=== PATIENT | male | born 1955 | race Caucasian/White ===

== ENCOUNTER → 2017-09-23 | Outpatient (CLI) | payer OTHER ==
[~2017-09-23] MED LIST: ASPI81EC PO; COUMADIN; DIPH50 PO; HYDACE5 PO; METPRE4DP PO; NAPR550 PO; OXYACE5T PO; PROC10 PO; PROM25 PO; RANI150 PO; RXONDA4ODT MM; TRAM50 PO
[2017-09-23 12:13] LABS: BASOPHILS ABSOLUTE AUTO 0.05 K/mm3 (0.00-0.23); BASOPHILS PERCENT AUTO 1 % (0-2); EOSINOPHILS ABSOLUTE AUTO 0.09 K/mm3 (0.00-0.68); EOSINOPHILS PERCENT AUTO 1 % (0-6); Hematocrit 39.6 % (37.0-53.0); Hemoglobin 13.7 g/dL (13.5-17.5); IMMATURE GRAN ABSOLUTE AUTO 0.02 K/mm3 (0.00-0.10); IMMATURE GRAN PERCENT AUTO 0 % (0-1); LYMPHOCYTES ABSOLUTE AUTO 1.46 K/mm3 (0.84-5.20); LYMPHOCYTES PERCENT AUTO 23 % (21-46); MONOCYTES ABSOLUTE AUTO 0.72 K/mm3 (0.16-1.47); MONOCYTES PERCENT AUTO 11 % (4-13); Mean Corpuscular HGB 32.5 pg (26.0-34.0); Mean Corpuscular HGB Conc 34.6 g/dL (31.5-36.5); Mean Corpuscular Volume 94 fL (80-100); Mean Platelet Volume 10.5 fL (9.1-12.4); NEUTROPHILS ABSOLUTE AUTO 4.03 K/mm3 (1.96-9.15); NEUTROPHILS PERCENT AUTO 63 % (41-73); Platelet Count 151 K/mm3 (150-400); RDW Standard Deviation 44.5 fL (35.1-46.3); Red Blood Cell Count 4.21 M/mm3 (4.30-5.90); White Blood Cell Count 6.37 K/mm3 (4.00-11.30)
[2017-09-23 12:32] LABS: Anion Gap 7 mmol/L (6-16); Blood Urea Nitrogen 12 mg/dL (8-24); Bun/Creatinine Ratio 14.1 (12.0-20.0); CO2, Blood 28 mmol/L (21-32); Calcium, Blood 9.3 mg/dL (8.5-10.1); Chloride, Blood 100 mmol/L (98-108); Creatinine, Blood 0.85 mg/dL (0.60-1.20); Glomerular Filtration Rate >60 (60-); Glucose, Blood 136 mg/dL (70-99); Sodium, Blood 135 mmol/L (136-145); Thyroid Stimulating Hormone 1.156 uIU/mL (0.360-4.800)
[2017-09-23 12:34] LABS: Troponin I <0.017 ng/mL (0.000-0.040)
== END | disposition home or self-care (01) ==
LOC: LAB SHORT 12:10 → LAB EV 12:10
PROVIDERS: Physician Assistant Surgical
DX: R07.9 Chest pain, unspecified (principal); R53.83 Other fatigue
CPT/HCPCS: 80048; 84443; 84484; 85025

== ENCOUNTER 2020-03-03 17:00 | Emergency (ER) | payer OTHER ==
[~2020-03-03] VITALS: Ht 167.6 cm; Wt 90.7 kg
[2020-03-03] MEDS ORDERED: KEFLEX500 MG PO (19:43)
== END 2020-03-03 19:58 | disposition home or self-care (01) ==
LOC: ER 17:00
DX: H02.845 Edema of left lower eyelid (principal); Z23 Encounter for immunization
CPT/HCPCS: 70480; 90471; 90714; 99283-25; A9270; A9270-GY

== ENCOUNTER 2021-06-20 10:04 | Inpatient (IN) | payer OTHER ==
[~2021-06-20] VITALS: Ht 167.6 cm; Wt 95.6 kg
[~2021-06-20 10:04] MED LIST changes: +KEFLEX500 MG PO
[2021-06-20 11:07] LABS: BASOPHILS ABSOLUTE AUTO 0.03 K/mm3 (0.00-0.23); BASOPHILS PERCENT AUTO 0 % (0-2); EOSINOPHILS ABSOLUTE AUTO 0.11 K/mm3 (0.00-0.68); EOSINOPHILS PERCENT AUTO 1 % (0-6); IMMATURE GRAN ABSOLUTE AUTO 0.11 K/mm3 (0.00-0.10); IMMATURE GRAN PERCENT AUTO 1 % (0-1); LYMPHOCYTES ABSOLUTE AUTO 0.69 K/mm3 (0.84-5.20); LYMPHOCYTES PERCENT AUTO 8 % (21-46); MONOCYTES ABSOLUTE AUTO 0.71 K/mm3 (0.16-1.47); MONOCYTES PERCENT AUTO 8 % (4-13); Mean Corpuscular HGB Conc 33.3 g/dL (31.5-36.5); Mean Corpuscular Volume 93 fL (80-100); Mean Platelet Volume 10.5 fL (9.1-12.4); NEUTROPHILS ABSOLUTE AUTO 6.82 K/mm3 (1.96-9.15); NEUTROPHILS PERCENT AUTO 81 % (41-73); Platelet Count 131 K/mm3 (150-400); RDW Coefficient Variation 12.7 % (11.7-14.2); RDW Standard Deviation 43.3 fL (35.1-46.3); Red Blood Cell Count 3.55 M/mm3 (4.30-5.90); White Blood Cell Count 8.47 K/mm3 (4.00-11.30)
[2021-06-20 11:24] LABS: Alanine Aminotransfer (ALT/SGP 30 U/L (12-78); Albumin, Blood 2.2 g/dL (3.4-5.0); Albumin/Globulin Ratio 0.4 (0.8-1.8); Alk Phos 59 U/L (50-136); Anion Gap 4 mmol/L (6-16); Aspartate Aminotrans (AST/SGOT 48 U/L (12-37); Bilirubin, Total 0.6 mg/dL (0.1-1.0); Blood Urea Nitrogen 11 mg/dL (8-24); Bun/Creatinine Ratio 14.5 (12.0-20.0); CO2, Blood 29 mmol/L (21-32); Calcium, Blood 8.2 mg/dL (8.5-10.1); Chloride, Blood 101 mmol/L (98-108); Creatinine, Blood 0.76 mg/dL (0.60-1.20); Glomerular Filtration Rate >60 (60-); Glucose, Blood 125 mg/dL (70-99); Sodium, Blood 134 mmol/L (136-145); Total Protein, Blood 7.2 g/dL (6.4-8.2)
[2021-06-20 13:46] LABS: Anti-Xa UFH, PHA Monitoring <0.10 IU/mL; International Normalized Ratio 1.09; Prothrombin Time Results 11.4 Sec (9.7-11.5)
--- NOTE | 2021-06-20 17:24 | NUR ---
PT ARRIVED TO ICU AT 1640 06/20/21 ON ROOM AIR, WITH HEPARIN DRIP RUNNING AT 18 UNITS/KG/HR WITH A PUMP RATE OF 27.4. TEMP LIN PLACED AND URINE SAMPLE SENT. TEMPURATURE 100.7 F, WT 96.6 KG, HR 110, BP 156/82, O2 SAT 88% (PLACED ON 2 LITERS NASAL CANNULA) RR 24. HT 5'6''
--- NOTE | 2021-06-20 17:41 | NUR ---
PT LEFT TO HEART CENTER WITH CATH STAFF AT 1740 06/20/21
[2021-06-20 18:33] LABS: U Amphetamine Screen DETECTED; U Barbituate Screen Not Detected; U Benzodiazapine Screen Not Detected; U Buprenorphine Screen Not Detected; U Cannabinoids Screen DETECTED; U Cocaine Screen Not Detected; U Methadone Screen Not Detected; U Methamphetamine Screen DETECTED; U Opiates Screen DETECTED; U Oxycodone Screen Not Detected; U Phencyclidine Screen Not Detected; U Propoxyphene Screen Not Detected
[2021-06-20 20:30] LABS: Source, Urine Foley catheter
[2021-06-20 20:33] LABS: Appearance, Urine Clear (Clear); Bilirubin, Urine Neg (Neg); Blood, Urine 1+ (Neg); Color, Urine Yellow (P-Yellow); Glucose Qualitative, Urine Neg (Neg); Ketones, Urine Neg (Neg); Leukocyte Esterase, Urine Neg (Neg); Nitrite, Urine Neg (Neg); Protein, Urine 2+ (Neg); Urobilinogen, Urine 2+ (Normal)
[2021-06-20 20:58] LABS: Amorphous Light (0-Heavy); Bacteria Rare /hpf; Mucus Light (0-Heavy); Red Blood Cells, Urine 0-2 /hpf (0-2); Squamous Epithelial Cells Rare /hpf (Few); White Blood Cells, Urine Rare /hpf (0-5)
--- NOTE | 2021-06-20 23:00 | NUR ---
ASSUME CARE. BACK FROM CATHLAB. PATIENT IS ASLEEP, ON BIPAP. APPEARS TO BE COMFORTABLE. VITALS WNL, SATS IN THE 90'S. RIGHT FEMORAL SHEATH CATHETER WRAPPED IN GAUZE AND TEGADERM, NO SIGNS OF BLEEDING OR HEMATOMA. DR. CLAY IN ROOM. ORDER FOR HEPARIN DRIP STARTED VIA FEMORAL SHEATH PORT WITH NS TKO Y-SITED IN. ORDER FOR CATHFLOW PLACED. PATIENT ABLE TO OPEN EYES AND ANSER BUT FALLS RIGHT BACK TO SLEEP. RLE PULSE TO TIBIAL WITH DOPPLER. NO PEDAL PULSES. RIGHT FOOT COOL TO TOUCH, AND RED. LEFT GROIN DRESSING INTACT, NO SIGN OF BLEEDING OR HEMATOMA. LUNG SOUNDS COARSE CRACKLES IN BASES TO MID LOBES. CURRENTLY SINUS ON MONITOR.
[2021-06-20 23:29] LABS: Hemoglobin 9.5 g/dL (13.5-17.5); Mean Platelet Volume 10.8 fL (9.1-12.4); Platelet Count 133 K/mm3 (150-400)
--- NOTE | 2021-06-21 | NUR ---
PRECEDEX STARTED, PATIENT WOKE UP FOR SHORT PERIOD OF TIME, LIFTING HEAD. BUT WAS ABLE TO FOLLOW INSTRUCTIONS WELL. DID NOT STAY AWAKE FOR LONG. SITE IS CLEAR OF DRAINAGE. INFUSING CATHFLOW AND HEPARIN PER ORDERS. RIGHT FOOT IS RED MOTTLED, SLIGHTLY WARMER.
[2021-06-21 03:53] LABS: Hematocrit 27.6 % (37.0-53.0); Hemoglobin 9.3 g/dL (13.5-17.5); Mean Corpuscular HGB 31.6 pg (26.0-34.0); Mean Corpuscular HGB Conc 33.7 g/dL (31.5-36.5); Mean Corpuscular Volume 94 fL (80-100); Mean Platelet Volume 10.8 fL (9.1-12.4); Platelet Count 127 K/mm3 (150-400); RDW Standard Deviation 44.5 fL (35.1-46.3); Red Blood Cell Count 2.94 M/mm3 (4.30-5.90); White Blood Cell Count 9.42 K/mm3 (4.00-11.30)
--- NOTE | 2021-06-21 06:20 | NUR ---
SHIFT SUMMARY: RETURNED FROM CATHLAB AROUND 2229. CURRENTLY INFUSING HEPAIN WITH Y SITED NS AT TKO INTO RIGHT FEMERAL SHEATH PORTS. CATHFLOW INFUSING AT 1MG INTO OTHER PORT. SITE STARTED TO HAVE MILD DRAINAGE AROUND 0. ABOUT A TEASPOON IN MEASUREMENT. POSSIBLY R/T COUGHING EVENTS CAUSING HIM TO LIFT HEAD AND LEG SLIGHTLY. RIGHT FOOT COOLER THAN ROOM TEMP. NO PULSES NOTED. NOTED SOME FLEXTION AND EXTENTION OF THAT FOOT. DOES HAVE POPLITEAL PULSES PER DOPPLER. AWAKED FOR SHORT PERIOD AROUND 399 ASKING FOR WATER. MOISTENED ORAL CAVITY AND PLACED BACK ON BIPAP. BIPAP SETTINGS AT IPAP 18, EPAP 10, RATE 10. FIO2 35%. INCREASE IN PRODUCTION, CLEARED THICK YELLOW SPUTUM FROM MOUTH. COUGH VERY MOIST. LS COARSE MID TO LOWER LOBES. PRECEDEX STARTED AND CURRENTLY RUNNING AT 0.3MG. WILL REPORT OFF TO DAYSHIFT.
[2021-06-21 06:42] LABS: Anion Gap 6 mmol/L (6-16); Blood Urea Nitrogen 11 mg/dL (8-24); Bun/Creatinine Ratio 11.7 (12.0-20.0); CHOL/HDL RATIO 3.5; CO2, Blood 27 mmol/L (21-32); Calcium, Blood 8.1 mg/dL (8.5-10.1); Chloride, Blood 103 mmol/L (98-108); Cholesterol 121 mg/dL (50-200); Creatinine, Blood 0.94 mg/dL (0.60-1.20); Glomerular Filtration Rate >60 (60-); Glucose, Blood 107 mg/dL (70-99); HDL Cholesterol 35 mg/dL (>39); LDL/HDL RATIO 1.8; Low Density Lipoprotein Chol 62 mg/dL (0-110); Potassium, Blood 4.4 mmol/L (3.5-5.5); Sodium, Blood 136 mmol/L (136-145); Triglycerides 118 mg/dL (30-160); Very Low Density Lipoprot Chol 23 mg/dL (6-32)
--- NOTE | 2021-06-21 07:15 | NUR ---
PT RESTING ON BIPAP WITH SETTINGS OF 18/10 45% FiO2. PT HAS HEPARIN RUNNING AT SET RATE OF 10MLS/HR ORDERED INTO SHEATH. PT HAS TPA RUNNING AT TPA RUNNING AT 10ML/HR INTO CATHETER AND A PRECEDEX DRIP RUNNING AT .3. PT'S VITALS CURRENTLY STABLE, AFEBRILE, MAP'S ABOVE 65, HR IN THE 80'S.
--- NOTE | 2021-06-21 08:59 | NUR ---
PT PLACED ON HIGH FLOW DT REFUSING BIPAP AND OXYGEN SATTING 86% WITH 6L NC. 50L/MIN @ 60% FiO2
--- NOTE | 2021-06-21 10:11 | NUR ---
PT FRIEND CATHRYN MORRISSEY UPDATED ON PT STATUS WITH PT'S CONSENT.
--- NOTE | 2021-06-21 14:11 | NUR ---
PT LEFT FOR METAL MINE INSPECTOR AT 1101. PT RETURNED FROM METAL MINE INSPECTOR AT 1402. HEPARIN DRIP RESTARTED AT 10ML/HR CONTINUOUS PER ORDER. PRECEDEX RUNNING AT .9MCG/KG/HR. PT ON HIGHFLOW NASAL CANNULA 45L/MIN AT 45% FiO2. BLOOD PRESSURES SOFT AT 85/56 (65). OTHERWISE STABLE AND PT RESTING COMFORTABLY.
--- NOTE | 2021-06-21 14:21 | NUR ---
HEPARIN DRIP UPDATED TO WEIGHT BASED
--- NOTE | 2021-06-21 17:00 | NUR ---
PT RESTING ON HFCL 45L/45%, .7 OF PRECEDEX AND HEPARIN RUNNING 18 UNITS/KG/HR WITH A PUMP RATE OF 27.4. KNEE IMOBILIZER IN PLACE, WARM BLANKET ON RT FOOT. COVID PCR AND SPUTUM CULTURE SENT. NEURO- PT FOLLOWS COMMANDS IN ALL EXTREMETIES, WEAKLY MOVES RT FOOT. STRABISMUS OF RT EYE. A/O X4 BUT SPEECH IS GARBLED/SLURRED AT BASELINE. CARDIAC- PT HR CURRENTLY IN THE 60'S WITH PRECEDEX DRIP RUNNING, WAS 110'S ON ADMISSION. NSR ON TELEMETRY. STRONG RADIAL PULSES, DOPPLER RT DORSALIS PEDAL PULSE. COLOR OF RT FOOT HAS IMPROVED TO A LIGHT MAROON COLOR AND IS WARMER THAN YESTERDAY. LEFT BKA STUMP IS COOL AND DISCOLORED. PT HAD A BROWN CALLOUSED APPEARANCE ON EXRTREMETY FROM ADMIT. NO HEMATOMA AT ACCESS SITE ON GROIN. RESPIRATORY- PT IS COARSE IN UPPER LOBES AND DIMINISHED IN THE BASES. THICK, DAILEY SECTRETION NT SUCTIONED FROM PT. POSITIVE FOR COVID 06/21/21 GI/- REGULAR DIET ORDERED. PT ONLY VOIDED 400MLS OF URINE THIS SHIFT. PROVIDER AWARE. PT IS IMPULSIVE AT TIMES.
[2021-06-21 17:09] LABS: Influenza A, PCR NEGATIVE (NEGATIVE); Influenza B, PCR NEGATIVE (NEGATIVE); Resp Syncytial Virus, PCR NEGATIVE (NEGATIVE)
[2021-06-21 17:10] LABS: SARS-Cov-2 (COVID-19) PCR, MMC POSITIVE (NEGATIVE)
[2021-06-21 17:26] LABS: Hematocrit 27.7 % (37.0-53.0)
--- NOTE | 2021-06-21 20:00 | NUR ---
ASSUMED CARE OF PT AT 1915. REPORT RECEIVED. PT PRESENTS IN BED. HF OXYGEN IN USE. PT HAS A MOIST COUGH THAT HE SWALLOWS PRODUCT. RIGHT AND LEFT GROIN ACCESSES WITHOUT HEMATOMA OR OOZING. DOES HAVE PALPABLE PEDAL PULSE RIGHT. LEFT STUMP SLIGHT COOL TO TOUCH. PT AWAKENS AND ACKNOWLEDGES THIS RN. PT DOES HAVE PRECEDEX AT 0.6/MCG'S. WILL TITRATE DOWN IF ABLE. WILL REVIEW CHART AND PLAN OF CARE FOR THIS PT.
--- NOTE | 2021-06-21 23:41 | NUR ---
POWERGLIDE PRO STARTED IN LEFT UPPER ARM. LIDOCAINE USED. PT TOLERATED WELL. LAB SENT. PT CONTNUES WITHOUT CHANGE TO GROIN SITES. WILL CONTINUE TO MONITOR.
[2021-06-22 04:31] LABS: BASOPHILS ABSOLUTE AUTO 0.01 K/mm3 (0.00-0.23); BASOPHILS PERCENT AUTO 0 % (0-2); EOSINOPHILS PERCENT AUTO 0 % (0-6); Hematocrit 22.9 % (37.0-53.0); Hemoglobin 7.4 g/dL (13.5-17.5); IMMATURE GRAN ABSOLUTE AUTO 0.12 K/mm3 (0.00-0.10); IMMATURE GRAN PERCENT AUTO 1 % (0-1); LYMPHOCYTES ABSOLUTE AUTO 0.54 K/mm3 (0.84-5.20); LYMPHOCYTES PERCENT AUTO 6 % (21-46); MONOCYTES ABSOLUTE AUTO 0.28 K/mm3 (0.16-1.47); MONOCYTES PERCENT AUTO 3 % (4-13); Mean Corpuscular HGB 31.5 pg (26.0-34.0); Mean Corpuscular HGB Conc 32.3 g/dL (31.5-36.5); Mean Corpuscular Volume 97 fL (80-100); Mean Platelet Volume 11.5 fL (9.1-12.4); NEUTROPHILS ABSOLUTE AUTO 8.28 K/mm3 (1.96-9.15); NEUTROPHILS PERCENT AUTO 90 % (41-73); Platelet Count 133 K/mm3 (150-400); RDW Standard Deviation 45.9 fL (35.1-46.3); Red Blood Cell Count 2.35 M/mm3 (4.30-5.90); White Blood Cell Count 9.23 K/mm3 (4.00-11.30)
[2021-06-22 04:47] LABS: Anion Gap 6 mmol/L (6-16); Blood Urea Nitrogen 23 mg/dL (8-24); Bun/Creatinine Ratio 23.4 (12.0-20.0); CO2, Blood 26 mmol/L (21-32); Calcium, Blood 7.8 mg/dL (8.5-10.1); Chloride, Blood 107 mmol/L (98-108); Creatinine, Blood 0.98 mg/dL (0.60-1.20); Glomerular Filtration Rate >60 (60-); Glucose, Blood 133 mg/dL (70-99); Potassium, Blood 4.6 mmol/L (3.5-5.5); Sodium, Blood 139 mmol/L (136-145)
--- NOTE | 2021-06-22 06:15 | NUR ---
HAVE TITRATED PRECEDEX TO OFF. PT ALERT AND ORIENTED. PLEASANT AND COOPERATIVE WITH CARE AND ASSESSMENT. HAVE SWITCHED PT FROM BIPAP TO NASAL CANNULA. 5 LITERS PER MINUTE KEEPS PT > 90 PERCENT SATURATED. PT ABLE TO TAKE DRINKS OF WATER WITHOUT ASSIST. NO COUGH. AFTER NIGHT OF BIPAP LUNGS HAVE SOME SCATTERED WHEEZES. SOME RHONCHI IN BASES. MUCH APPROVED FROM EVENING ASSESSMENT. WILL CONTINUE TO MONITOR PT, AND WILL REPORT OFF TO ONCOMING RN.
--- NOTE | 2021-06-22 07:40 | NUR ---
PT RESTING IN ROOM, BEDSIDE TABLE AND WATER IN REACH. PT CURRENTLY ON 5L NC, HEPARIN DRIP RUNNING 18 UNITS/KG/HR. PRECEDEX OFF. AFEBRILE, VITALS STABLE AT THIS TIME.
[2021-06-22 12:24] LABS: Hematocrit 24.9 % (37.0-53.0); Hemoglobin 8.1 g/dL (13.5-17.5)
--- NOTE | 2021-06-22 15:06 | NUR ---
PT UPDATED TO MEDICAL STATUS, NO TELE. PT WORKED WITH PT TODAY, SEE PT/OT NOTE.
--- NOTE | 2021-06-22 16:51 | NUR ---
TRANSFER: PT TO ROOM 343 FROM ICU. PT A+O, [place]. PT ON 5L O2. DENIES SOB AT REST. CONT BIOX PLACED. PT STATES HE HAS NON PRODUCTIVE COUGH. ISOLATION FOR COVID + RESULT. LS COARSE T/O. HRR. RIGHT FOOT DISCOLORATION, PULSE MARKED AND FAINT. SWELLING IN RIGHT LEG. PREVIOUS LEFT BKA. HEPARIN GGT INFUSING. DENIES PAIN AT THIS TIME. PT DELIA GAVIN'Sadia PRIOR TO TRANSFER, URINAL PLACED AT BEDSIDE. CALL LIGHT PLACED IN REACH. WILL CONT TO MONITOR AND TREAT.
--- NOTE | 2021-06-22 18:28 | NUR ---
PT HAS BEEN STABLE SINCE TRANSFER. PAIN EFFECTIVELY TREATED WITH PRN DILAUDID. CONT HEP GGT ORDERED. PULSE MARKED ON RIGHT FOOT, FAINT. PT ON 5L O2 AND CONT BIOX, NON PRODUCTIVE COUGH. PT VOIDING WITH URINAL. LABS ORDERED FOR AM. CALL LIGHT USED APPROPRIATELY. SEPHORA PRODUCT CONSULTANT NEEDED FOR DC PLANNING.
[2021-06-23 02:23] LABS: BASOPHILS ABSOLUTE AUTO 0.02 K/mm3 (0.00-0.23); BASOPHILS PERCENT AUTO 0 % (0-2); EOSINOPHILS PERCENT AUTO 0 % (0-6); Hematocrit 21.6 % (37.0-53.0); Hemoglobin 7.1 g/dL (13.5-17.5); IMMATURE GRAN ABSOLUTE AUTO 0.18 K/mm3 (0.00-0.10); IMMATURE GRAN PERCENT AUTO 1 % (0-1); LYMPHOCYTES ABSOLUTE AUTO 0.92 K/mm3 (0.84-5.20); LYMPHOCYTES PERCENT AUTO 7 % (21-46); MONOCYTES ABSOLUTE AUTO 0.55 K/mm3 (0.16-1.47); MONOCYTES PERCENT AUTO 4 % (4-13); Mean Corpuscular HGB 31.7 pg (26.0-34.0); Mean Corpuscular HGB Conc 32.9 g/dL (31.5-36.5); Mean Corpuscular Volume 96 fL (80-100); Mean Platelet Volume 11.4 fL (9.1-12.4); NEUTROPHILS PERCENT AUTO 88 % (41-73); Platelet Count 177 K/mm3 (150-400); RDW Coefficient Variation 13.2 % (11.7-14.2); RDW Standard Deviation 46.3 fL (35.1-46.3); Red Blood Cell Count 2.24 M/mm3 (4.30-5.90); White Blood Cell Count 14.07 K/mm3 (4.00-11.30)
[2021-06-23 02:44] LABS: Anion Gap 6 mmol/L (6-16); Blood Urea Nitrogen 33 mg/dL (8-24); Bun/Creatinine Ratio 35.1 (12.0-20.0); CO2, Blood 27 mmol/L (21-32); Calcium, Blood 8.1 mg/dL (8.5-10.1); Chloride, Blood 101 mmol/L (98-108); Creatinine, Blood 0.94 mg/dL (0.60-1.20); Glomerular Filtration Rate >60 (60-); Glucose, Blood 188 mg/dL (70-99); Potassium, Blood 4.9 mmol/L (3.5-5.5); Sodium, Blood 134 mmol/L (136-145)
--- NOTE | 2021-06-23 05:13 | NUR ---
PT IS ALERT AND ORIENTED X4. AT TIMES IS HARD TO UNDERSTAND WHAT HE IS SAYING. VERY HARD OF HEARING. VOIDING. PAIN TREATED ONCE WITH DILAUDID. HEPARIN DRIP DID NOT CHANGED THRU THE NIGHT. SLEEPING WITH BIPAP. VSS. CALL APPROPRIATE FOR ASSISTANCE.
--- NOTE | 2021-06-23 14:56 | NUR ---
PATIENT STS OK TO UPDATE FRIEND, OMAR BERGMAN, ON CONDITION.
--- NOTE | 2021-06-23 15:40 | NUR ---
ALERT. ORIENTED. VERY [place]. DIFFICULT TO UNDERSTAND PATIENTS SPEECH. LEFT STUMP DRY, WARM WITH SOME DUSKINESS TO END. RT LEG VERY FAINT DISTAL PULSE, BUT GOOD PULSE WITH DOPPLER. LEG SLIGHTLY RED, WARM, DRY. RT GRION SITE WITH CLEAR DRESSING, DRY AND INTACT. AT THIS TIME OXYGEN DOWN TO 6LPM ;WHEREAS, IT WAS AT 15 LPM THIS A.M. ADVISED TO SLEEP ON SIDE AND PATIENT HAS BEEN COMPLIANT. GIVEN I.S. AND PATIENT IS UP TO 2000 AT THIS TIME. IV X 3 PATENT. WAS IN TO SEE PATIENT. [facility].
--- NOTE | 2021-06-23 18:06 | NUR ---
PATIENT SITTING UP EATTING. SATS 91-93% ON 4LPM N/C WITH HEART RATE 100-108.
--- NOTE | 2021-06-24 04:49 | NUR ---
SHIFT SUMMARY: PT IS A/OX4. HE REMAINED ON 4L OF O2 W/ >92% SATS. HE DID WEAR HIS BIPAP WHILE SLEEPING. COLOR AND TEMP WERE IMPROVED IN HIS LEFT AKA/RIGHT LOWER EXTREMITY. HIS PEDAL PULSE IS PALPABLE AND FAINTLY AUDIBLE TO AUSCULTATION. NO OTHER CHANGES TO REPORT. CALL LIGHT IS WITHIN REACH AND WE'LL CONTINUE TO MONITOR.
[2021-06-24 13:22] LABS: BASOPHILS ABSOLUTE AUTO 0.02 K/mm3 (0.00-0.23); BASOPHILS PERCENT AUTO 0 % (0-2); EOSINOPHILS PERCENT AUTO 0 % (0-6); Hematocrit 25.6 % (37.0-53.0); Hemoglobin 8.5 g/dL (13.5-17.5); IMMATURE GRAN ABSOLUTE AUTO 0.22 K/mm3 (0.00-0.10); IMMATURE GRAN PERCENT AUTO 2 % (0-1); LYMPHOCYTES ABSOLUTE AUTO 0.53 K/mm3 (0.84-5.20); LYMPHOCYTES PERCENT AUTO 5 % (21-46); MONOCYTES ABSOLUTE AUTO 0.69 K/mm3 (0.16-1.47); MONOCYTES PERCENT AUTO 6 % (4-13); Mean Corpuscular HGB Conc 33.2 g/dL (31.5-36.5); Mean Corpuscular Volume 96 fL (80-100); Mean Platelet Volume 11.1 fL (9.1-12.4); NEUTROPHILS ABSOLUTE AUTO 10.03 K/mm3 (1.96-9.15); NEUTROPHILS PERCENT AUTO 87 % (41-73); Platelet Count 191 K/mm3 (150-400); RDW Coefficient Variation 13.2 % (11.7-14.2); Red Blood Cell Count 2.66 M/mm3 (4.30-5.90); White Blood Cell Count 11.49 K/mm3 (4.00-11.30)
--- NOTE | 2021-06-24 19:16 | NUR ---
SHIFT SUMMARY A/O X4, MORE HYPERTENSIVE TODAY AND STARTED ON LISINAPRIL c HYDRALAZINE PRN TO ADDRESS THIS, STARTED SHIFT AT 4L O2 AND WAS ABLE TO WEEN DOWN TO ROOM AIR WHILE HOLDING SATS > 94% (AVERAGING 97%). PULSE PALPABLE IN RLE. NO ACUTE EVENTS THIS SHIFT, CALL LIGHT IN REACH, REPORT GIVEN TO KYLE MOONEY.
--- NOTE | 2021-06-25 05:10 | NUR ---
SHIFT SUMMARY: CMS IN R LE IS IMPROVED PP IS FAINT BUT PALPABLE. PATIENT REQUEST MELATONIN FOR SLEEP, MED WAS GIVEN WITH GOOD EFFECT. POWER GLIDE IN LUE IS OCCLUDED. SITE IS DC'D AND WNL. DSD WAS APPLIED
[2021-06-25 05:51] LABS: BASOPHILS ABSOLUTE AUTO 0.02 K/mm3 (0.00-0.23); BASOPHILS PERCENT AUTO 0 % (0-2); EOSINOPHILS ABSOLUTE AUTO 0.02 K/mm3 (0.00-0.68); EOSINOPHILS PERCENT AUTO 0 % (0-6); Hematocrit 22.9 % (37.0-53.0); Hemoglobin 7.7 g/dL (13.5-17.5); IMMATURE GRAN ABSOLUTE AUTO 0.32 K/mm3 (0.00-0.10); IMMATURE GRAN PERCENT AUTO 4 % (0-1); LYMPHOCYTES ABSOLUTE AUTO 1.49 K/mm3 (0.84-5.20); LYMPHOCYTES PERCENT AUTO 16 % (21-46); MONOCYTES ABSOLUTE AUTO 0.86 K/mm3 (0.16-1.47); MONOCYTES PERCENT AUTO 9 % (4-13); Mean Corpuscular HGB 32.1 pg (26.0-34.0); Mean Corpuscular HGB Conc 33.6 g/dL (31.5-36.5); Mean Corpuscular Volume 95 fL (80-100); NEUTROPHILS ABSOLUTE AUTO 6.45 K/mm3 (1.96-9.15); NEUTROPHILS PERCENT AUTO 70 % (41-73); NRBC ABSOLUTE 0.02 K/mm3 (0.00-0.02); NRBC Auto 0.2 /100 WBC (0.0-0.2); Platelet Count 196 K/mm3 (150-400); RDW Coefficient Variation 13.1 % (11.7-14.2); RDW Standard Deviation 45.1 fL (35.1-46.3); White Blood Cell Count 9.16 K/mm3 (4.00-11.30)
[2021-06-25 06:13] LABS: Anion Gap 6 mmol/L (6-16); Blood Urea Nitrogen 18 mg/dL (8-24); Bun/Creatinine Ratio 21.6 (12.0-20.0); CO2, Blood 27 mmol/L (21-32); Calcium, Blood 8.1 mg/dL (8.5-10.1); Chloride, Blood 101 mmol/L (98-108); Creatinine, Blood 0.83 mg/dL (0.60-1.20); Glomerular Filtration Rate >60 (60-); Glucose, Blood 93 mg/dL (70-99); Potassium, Blood 4.3 mmol/L (3.5-5.5); Sodium, Blood 134 mmol/L (136-145)
[2021-06-25 12:36] LABS: Hematocrit 26.7 % (37.0-53.0); Hemoglobin 9.1 g/dL (13.5-17.5)
--- NOTE | 2021-06-25 16:36 | NUR ---
SHIFT SUMMARY PT A&O X4 AND IN PLEASENT MOOD T/O SHIFT. PT WAS FOUND UNATTENDED ON TOILET DURING AM HOURS, WHEN QUESTIONED ABOUT HOW PT AMBULATED TO RESTROOM PT STATED HE CRAWLED. PT WAS EDUCATED ON THE IMPORTANCE OF FALL PREVENTION AND UTILIZING CALL LIGHT FOR ASSISTANCE FOR FUTURE ASSISTANCE- PT DID UTILIZE CALL LIGHT T/O REMAINDER OF SHIFT. WORKED W/ PT AND RT, DENIED OT. VSS. CALL LIGHT W/ IN REACH. DENIED PAIN T/O SHIFT.
--- NOTE | 2021-06-26 01:39 | NUR ---
assumed care after verbal report & review of regulatory handoff report. PT has covid 19, on room air with bioxx, hx GABE has cpap in room. RT revasc recent with thrombectomy. LT aka. Working with PT OT & has no current complaints. SNF DC pending. PT reportedly homeless. In enhanced isolation for covid 19.
--- NOTE | 2021-06-26 17:57 | NUR ---
PATIENT IS ALERT MOST OF SHIFT. ONE EPISODE OF N&V THIS AM, AFTER TAKING MORNING MEDICATIONS. NO FURTHER EPISODES. LUNGS HAVE INSPIRATORY WHEEZING. SW IS WORKING ON MEDICARE/INSURANCE SO HE CAN BE PLACED. BROTHER ALLEGRA CALLED THIS AFTERNOON AND PROVIDED A NEW NUMBER [phone]- INCASE THE DOCTOR WANTED TO CALL.
--- NOTE | 2021-06-27 04:49 | NUR ---
66 year old MAle with PVD, Covid 19 & had rt le thrombectomy & revasc this stay. CMS to rt le foot good & pain well controlled with elevation to decrease edema. PT is homeless, discharge planning to SNF to continue rehab. Hard of hearing but able to communicate & is continebt of bowel & bladder, uses urinal. PT on room air, does IS with fair technique. Has coarse breath sound loose unprod cough.
--- NOTE | 2021-06-27 07:43 | NUR ---
JESICA recanila handoff of patient care from JESICA Zaldivar Patient was sitting in chair watching tv with leg propped on the bed. Patient requested pain med for pain in his leg. RN will assist with his request.
--- NOTE | 2021-06-28 03:35 | NUR ---
RIVET HOLE PUNCHER SUMMARY PATIENT HAD A FAIR SHIFT. HIS ASSESSMENT DONE AND DOCUMENTED. NO COMPLAINTS OVERNIGHT. VS ARE STABLE, WILL CONTINUE TO MONITOR HIM.
[2021-06-28 06:13] LABS: Anion Gap 6 mmol/L (6-16); Blood Urea Nitrogen 24 mg/dL (8-24); Bun/Creatinine Ratio 25.7 (12.0-20.0); CO2, Blood 26 mmol/L (21-32); Calcium, Blood 8.9 mg/dL (8.5-10.1); Chloride, Blood 100 mmol/L (98-108); Creatinine, Blood 0.94 mg/dL (0.60-1.20); Glomerular Filtration Rate >60 (60-); Glucose, Blood 93 mg/dL (70-99); Potassium, Blood 4.6 mmol/L (3.5-5.5); Sodium, Blood 132 mmol/L (136-145)
[2021-06-28] MEDS ORDERED: ATOR80 PO (16:10)
[2021-06-28] MEDS ORDERED: CLOP75 PO (16:11)
[2021-06-28] MEDS ORDERED: MELA3 PO (16:12)
[2021-06-28] MEDS ORDERED: Prinivil10 MG PO (16:12)
[2021-06-28] MEDS ORDERED: XARELTO20 MG PO ×2 (16:14→16:16)
--- NOTE | 2021-06-28 17:00 | NUR ---
DISCHARGE PT A&O X4 DURING DC. PT PROVIDED W/ WRITTEN AND VERBAL INSTRUCTION. PT VERBALIZED UNDERSTANDING. VSS. IV DC'ED. BELONGINGS IN TOW. [facility] CREAM BUYER WHEELED PT TO [facility] WHERE FRIEND IS PROVIDING TRANSPORT.
== END 2021-06-28 17:06 | disposition home health service (06) | DRG 270 ==
LOC: ER 10:04 → MEDS 15:01 → ICUE 15:01 → MEDS 06-22 16:25 → ENPENDDIS 06-28 15:56 → MEDS 06-28 17:06
PROVIDERS: Family Medicine; Internal Medicine; Nurse Practitioner Acute Care; Physician Assistant; Student in an Organized Health Care Education/Training Program; ADMIT Hospitalist
PROC: 047C3DZ Dilation of Right Common Iliac Artery with Intraluminal Device, Percutaneous Approach (ICD-10-PCS; principal; 2021-06-20)
PROC: B41D1ZZ Fluoroscopy of Aorta and Bilateral Lower Extremity Arteries using Low Osmolar Contrast (ICD-10-PCS; 2021-06-20)
PROC: 04CP3ZZ Extirpation of Matter from Right Anterior Tibial Artery, Percutaneous Approach (ICD-10-PCS; 2021-06-20)
PROC: 047D3DZ Dilation of Left Common Iliac Artery with Intraluminal Device, Percutaneous Approach (ICD-10-PCS; 2021-06-20)
PROC: 04CP3ZZ Extirpation of Matter from Right Anterior Tibial Artery, Percutaneous Approach (ICD-10-PCS; 2021-06-21)
PROC: B41D1ZZ Fluoroscopy of Aorta and Bilateral Lower Extremity Arteries using Low Osmolar Contrast (ICD-10-PCS; 2021-06-21)
PROC: XW033E5 Introduction of Remdesivir Anti-infective into Peripheral Vein, Percutaneous Approach, New Technology Group 5 (ICD-10-PCS; 2021-06-21)
PROC: 3E0DX3Z Introduction of Anti-inflammatory into Mouth and Pharynx, External Approach (ICD-10-PCS; 2021-06-21)
PROC: 8E0ZXY6 Isolation (ICD-10-PCS; 2021-06-21)
PROC: 5A09457 Assistance with Respiratory Ventilation, 24-96 Consecutive Hours, Continuous Positive Airway Pressure (ICD-10-PCS; 2021-06-22)
DX: I70.221 Atherosclerosis of native arteries of extremities with rest pain, right leg (principal); J96.01 Acute respiratory failure with hypoxia; U07.1 COVID-19; J12.82 Pneumonia due to coronavirus disease 2019; G93.40 Encephalopathy, unspecified; F15.10 Other stimulant abuse, uncomplicated; I95.81 Postprocedural hypotension; F19.10 Other psychoactive substance abuse, uncomplicated; F12.10 Cannabis abuse, uncomplicated; F11.10 Opioid abuse, uncomplicated; Z87.891 Personal history of nicotine dependence; Z89.512 Acquired absence of left leg below knee
CPT/HCPCS: 0241U; 36415; 37184; 37185; 37211; 37214; 37221; 37252; 37253; 51702; 70450; 71045; 75625; 75635; 75710; 75774; 76937; 80048; 80053; 80061; 81001; 85014; 85018; 85025; 85027; 85049; 85347; 85520; 85610; 85730; 93005; 93010; 93306; 93926; 94660; 94762; 96365-59; 96366-59; 96375-59; 96376-59; 97110; 97162; 97166; 97530; 97530-CQ; 97535; 99152; 99153; 99285-25; A9270; C1725; C1751; C1753; C1757; C1760; C1769; C1781; C1874; C1887; C1894; J0248; J0456; J0690; J0696; J1170; J1644; J1940; J2060; J2250; J2270; J2997; J3010; J7030; J7040; J7050; Q9967

== ENCOUNTER 2021-12-04 15:14 | Emergency (ER) | payer OTHER ==
[~2021-12-04] VITALS: Ht 167.6 cm; Wt 95.2 kg
[~2021-12-04 15:14] MED LIST changes: +ATOR80 PO; +CLOP75 PO; +MELA3 PO; +Prinivil10 MG PO; +XARELTO20 MG PO
[2021-12-04] MEDS ORDERED: IBUP600 PO (16:47)
[2021-12-04] MEDS ORDERED: HYDR1TAB94 PO (16:47)
== END 2021-12-04 17:09 | disposition home or self-care (01) ==
LOC: ER 15:14
DX: M54.10 Radiculopathy, site unspecified (principal); Z79.899 Other long term (current) drug therapy; Z79.01 Long term (current) use of anticoagulants; Z87.891 Personal history of nicotine dependence
CPT/HCPCS: J1170; J1885

== ENCOUNTER 2023-06-03 08:05 | Emergency (ER) | payer OTHER ==
[~2023-06-03] VITALS: Ht 167.6 cm; Wt 90.7 kg
[~2023-06-03 08:05] MED LIST changes: +HYDR1TAB94 PO; +IBUP600 PO
[2023-06-03 12:30] VITALS: BP 139/76
== END 2023-06-03 12:36 | disposition home or self-care (01) ==
LOC: ER 08:05
DX: S06.0X0A Concussion without loss of consciousness, initial encounter (principal); S70.01XA Contusion of right hip, initial encounter; S20.212A Contusion of left front wall of thorax, initial encounter; S30.0XXA Contusion of lower back and pelvis, initial encounter; W01.0XXA Fall on same level from slipping, tripping and stumbling without subsequent striking against object, initial encounter; Z87.891 Personal history of nicotine dependence
CPT/HCPCS: 71045; 73502; 93005; 93010; 99284-25

== ENCOUNTER 2023-07-15 19:19 | Emergency (ER) | payer OTHER ==
[~2023-07-15] VITALS: Ht 167.6 cm; Wt 88.5 kg
[2023-07-15 21:19] LABS: BASOPHILS ABSOLUTE AUTO 0.03 K/mm3 (0.00-0.23); BASOPHILS PERCENT AUTO 0 % (0-2); EOSINOPHILS ABSOLUTE AUTO 0.18 K/mm3 (0.00-0.68); EOSINOPHILS PERCENT AUTO 3 % (0-6); Hematocrit 34.5 % (37.0-53.0); Hemoglobin 11.8 g/dL (13.5-17.5); IMMATURE GRAN ABSOLUTE AUTO 0.01 K/mm3 (0.00-0.10); IMMATURE GRAN PERCENT AUTO 0 % (0-1); LYMPHOCYTES ABSOLUTE AUTO 1.44 K/mm3 (0.84-5.20); LYMPHOCYTES PERCENT AUTO 21 % (21-46); MONOCYTES ABSOLUTE AUTO 0.57 K/mm3 (0.16-1.47); MONOCYTES PERCENT AUTO 8 % (4-13); Mean Corpuscular HGB 32.4 pg (26.0-34.0); Mean Corpuscular HGB Conc 34.2 g/dL (31.5-36.5); Mean Corpuscular Volume 95 fL (80-100); Mean Platelet Volume 11.1 fL (9.1-12.4); NEUTROPHILS ABSOLUTE AUTO 4.61 K/mm3 (1.96-9.15); NEUTROPHILS PERCENT AUTO 68 % (41-73); Platelet Count 151 K/mm3 (150-400); RDW Coefficient Variation 13.3 % (11.7-14.2); RDW Standard Deviation 46.4 fL (35.1-46.3); Red Blood Cell Count 3.64 M/mm3 (4.30-5.90); White Blood Cell Count 6.84 K/mm3 (4.00-11.30)
[2023-07-15 21:37] LABS: Ethanol (Alcohol), Blood, Med <3 mg/dL; Salicylate <1.7 mg/dL (2.8-20.0)
[2023-07-15 21:46] LABS: Acetaminophen, Random <2.0 ug/mL (10.0-30.0); Alanine Aminotransfer (ALT/SGP 20 U/L (12-78); Albumin, Blood 2.9 g/dL (3.4-5.0); Albumin/Globulin Ratio 0.7 (0.8-1.8); Alk Phos 72 U/L (50-136); Anion Gap 4 mmol/L (6-16); Aspartate Aminotrans (AST/SGOT 17 U/L (12-37); Bilirubin, Total 0.4 mg/dL (0.1-1.0); Blood Urea Nitrogen 24 mg/dL (8-24); Bun/Creatinine Ratio 20.7 (12.0-20.0); CO2, Blood 32 mmol/L (21-32); Chloride, Blood 103 mmol/L (98-108); Creatinine, Blood 1.16 mg/dL (0.60-1.20); Globulin, Blood 4.2 g/dL (2.2-4.0); Glomerular Filtration Rate 68 (60-); Glucose, Blood 132 mg/dL (70-99); Sodium, Blood 139 mmol/L (136-145); Total Protein, Blood 7.1 g/dL (6.4-8.2)
[2023-07-16 00:18] VITALS: BP 122/63
== END 2023-07-16 00:22 | disposition home or self-care (01) ==
LOC: ER 19:19
PROVIDERS: Student in an Organized Health Care Education/Training Program
DX: R45.851 Suicidal ideations (principal); Z87.891 Personal history of nicotine dependence
CPT/HCPCS: 36415; 70450; 80053; 85025; 93005; 93010; 99285-25; G0480

== ENCOUNTER 2024-01-27 15:14 | Inpatient (IN) | payer OTHER ==
[~2024-01-27] VITALS: Ht 165.1 cm; Wt 90.0 kg
[2024-01-27 16:28] LABS: BASOPHILS ABSOLUTE AUTO 0.05 K/mm3 (0.00-0.23); BASOPHILS PERCENT AUTO 0 % (0-2); EOSINOPHILS PERCENT AUTO 0 % (0-6); Hematocrit 34.4 % (37.0-53.0); Hemoglobin 12.4 g/dL (13.5-17.5); IMMATURE GRAN ABSOLUTE AUTO 0.25 K/mm3 (0.00-0.10); IMMATURE GRAN PERCENT AUTO 1 % (0-1); LYMPHOCYTES ABSOLUTE AUTO 0.43 K/mm3 (0.84-5.20); LYMPHOCYTES PERCENT AUTO 2 % (21-46); MONOCYTES ABSOLUTE AUTO 0.67 K/mm3 (0.16-1.47); MONOCYTES PERCENT AUTO 3 % (4-13); Mean Corpuscular HGB 33.5 pg (26.0-34.0); Mean Corpuscular Volume 93 fL (80-100); Mean Platelet Volume 10.9 fL (9.1-12.4); NEUTROPHILS PERCENT AUTO 94 % (41-73); Platelet Count 113 K/mm3 (150-400); RDW Coefficient Variation 13.1 % (11.7-14.2); RDW Standard Deviation 44.4 fL (35.1-46.3)
[2024-01-27 17:01] LABS: Influenza A, PCR NEGATIVE (NEGATIVE); Influenza B, PCR NEGATIVE (NEGATIVE); Resp Syncytial Virus, PCR NEGATIVE (NEGATIVE); SARS-Cov-2 (COVID-19) PCR, MMC NEGATIVE (NEGATIVE)
[2024-01-27 17:08] LABS: Ethanol (Alcohol), Blood, Med 4 mg/dL; Salicylate <1.7 mg/dL (2.8-20.0)
[2024-01-27 17:16] LABS: Alanine Aminotransfer (ALT/SGP 19 U/L (12-78); Albumin/Globulin Ratio 0.8 (0.8-1.8); Alk Phos 64 U/L (50-136); Anion Gap 12 mmol/L (3-11); Aspartate Aminotrans (AST/SGOT 26 U/L (12-37); Bilirubin, Total 1.4 mg/dL (0.1-1.0); Blood Urea Nitrogen 17 mg/dL (8-24); CO2, Blood 24 mmol/L (21-32); Calcium, Blood 8.6 mg/dL (8.5-10.1); Chloride, Blood 96 mmol/L (98-108); Globulin, Blood 3.8 g/dL (2.2-4.0); Glomerular Filtration Rate 81 (60-); Glucose, Blood 120 mg/dL (70-99); Sodium, Blood 128 mmol/L (136-145); Total Protein, Blood 6.8 g/dL (6.4-8.2)
[2024-01-27 17:17] LABS: Acetaminophen, Random <2.0 ug/mL (10.0-30.0)
[2024-01-27 17:31] LABS: Source, Urine Clean Catch
[2024-01-27 17:34] LABS: Appearance, Urine Clear (Clear); Bilirubin, Urine Neg (Neg); Blood, Urine 2+ (Neg); Color, Urine Yellow (P-Yellow); Glucose Qualitative, Urine Neg (Neg); Ketones, Urine Neg (Neg); Leukocyte Esterase, Urine 1+ (Neg); Nitrite, Urine Neg (Neg); Protein, Urine 2+ (Neg); Urobilinogen, Urine 1+ (Normal)
[2024-01-27] MEDS ORDERED: NS 1,000 ML IV SCH (17:40)
[2024-01-27 17:42] LABS: Bacteria Few /hpf; Mucus Heavy (0-Heavy); Squamous Epithelial Cells Few /hpf (Few)
[2024-01-27 17:44] LABS: U Amphetamine Screen DETECTED; U Barbituate Screen Not Detected; U Benzodiazapine Screen Not Detected; U Buprenorphine Screen Not Detected; U Cannabinoids Screen DETECTED; U Cocaine Screen Not Detected; U Methadone Screen Not Detected; U Methamphetamine Screen DETECTED; U Opiates Screen Not Detected; U Oxycodone Screen Not Detected; U Phencyclidine Screen Not Detected
[2024-01-27] MEDS ORDERED: Clindamycin 600mg in D5W 50 ML IV ONE (18:00)
[2024-01-27] MEDS ORDERED: Acetaminophen 500 MG Tab PO ONE (18:00)
[2024-01-27] MEDS ORDERED: NS 1,000 ML IV ONE (19:55)
[2024-01-27] MEDS ORDERED: CeFAZolin Sodium 2,000 MG in NS 100 ML IV SCH (20:00)
[2024-01-27] MEDS ORDERED: Vancomycin HCL 1,000 MG in NS 250 ML IV ONE (20:15)
[2024-01-27] MEDS ORDERED: Lactobacil 2-S.Thermo-Bifido 1 1 Cap PO SCH (21:00)
[2024-01-27] MEDS ORDERED: TraMADol HCl 50 MG Tab PO PRN (23:40)
[2024-01-27] MEDS ORDERED: Ketorolac Tromethamine 15mg Vial IV ONE (23:45)
[2024-01-28] MEDS ORDERED: NS 250 ML IV PRN (02:45)
[2024-01-28 03:51] VITALS: BP 129/72
--- NOTE | 2024-01-28 05:27 | NUR ---
SHIFT SUMMARY ALERT AND ORIENTED TIMES 3. BED AT LOW POSITION, RAILS TIMES 2. SITTER AT ROOM ENTRANCE . PATIENT ADMITTED FROM ER AT APPROX 0400. PATIENT IS COOPERATIVE WITH CARE AND WAS ABLE TO GIVE ADMITTING RN MEDICAL AND MEDICATION HISTORY. PATIENT IS HOMELESS. PRIOR SURGERY ON BACK. PATIENT S TOE NAILS ON RIGHT FOOT ARE BLACK. PATIENT STATES IS NOT DIABETIC. NO TELE AND ON ROOM AIR
--- NOTE | 2024-01-28 05:29 | NUR ---
SHIFT SUMMARY NOC PT A/O X 3-4, [place]-BILOXI. PLEASANT AND COOPERATIVE WITH CARE. ADMIT FROM ED WITH SI AND RLE CELLULITIS. PT TRIED SI ATTEMPT 6 MONTHS AGO WITH A CAMRON. PT ADMITS WANTING TO HURT SELF CURRENTLY, BUT CAN NOT DESCRIBE HOW THEY WOULD DO SO. SI ROOM MITIGATION AND PRECAUTIONS INITIATED. PT HAS 1:1 DIRECT OBSERVATION SITTER IN PLACE. PT HAS L BKA, HAS CRUTCHES IN ROOM. PT RECEIVED TORADOL AND ULTRAM IN ED, BUT HAS BEEN ASLEEP SINCE ADMIT TO FLOOR. 0400 DOSE OF ANCEF RETIMED FOR 0700. PT WEIGHT FROM ED TO MEDICAL FLOOR HAS A DISCREPENCY OF 18 KG. PT WILL BE RECEIVING VANCO AND ANOTHER WT SHOULD BE AQUIRED BEFORE NEXT DOSE GIVEN. PT CURRENTLY RESTING WITH BED ALARM ON, SITTER, BED IN LOWEST POSITION, AND CALL LIGHT WITHIN REACH.
[2024-01-28] MEDS ORDERED: CeFAZolin Sodium 2,000 MG in NS 100 ML IV SCH (07:00)
[2024-01-28 07:55] VITALS: BP 145/83
[2024-01-28] MEDS ORDERED: Vancomycin HCL 750 MG in NS 250 ML IV SCH (09:00)
[2024-01-28] MEDS ORDERED: Enoxaparin 40 MG/0.4 ML SYR SC SCH (09:00)
--- NOTE | 2024-01-28 09:04 | NUR ---
PATIENT EXPRESSES NO THOUGHTS OF SELF HARM "YET" HE STATES THAT HE WILL LET SOMEONE KNOW WHEN HE DOES
[2024-01-28 09:40] LABS: Albumin, Blood 2.6 g/dL (3.4-5.0); Albumin/Globulin Ratio 0.7 (0.8-1.8); Bilirubin, Total 0.5 mg/dL (0.1-1.0); Bun/Creatinine Ratio 21.5 (12.0-20.0); Calcium, Blood 8.2 mg/dL (8.5-10.1); Creatinine, Blood 0.93 mg/dL (0.60-1.20); Globulin, Blood 3.7 g/dL (2.2-4.0); Potassium, Blood 3.7 mmol/L (3.5-5.5); Total Protein, Blood 6.3 g/dL (6.4-8.2)
[2024-01-28 10:16] LABS: BASOPHILS ABSOLUTE AUTO 0.03 K/mm3 (0.00-0.23); BASOPHILS PERCENT AUTO 0 % (0-2); Hemoglobin 11.8 g/dL (13.5-17.5); LYMPHOCYTES ABSOLUTE AUTO 0.21 K/mm3 (0.84-5.20); LYMPHOCYTES PERCENT AUTO 2 % (21-46); MONOCYTES ABSOLUTE AUTO 0.29 K/mm3 (0.16-1.47); MONOCYTES PERCENT AUTO 2 % (4-13); Mean Corpuscular HGB 32.6 pg (26.0-34.0); Mean Corpuscular HGB Conc 33.7 g/dL (31.5-36.5); Mean Corpuscular Volume 97 fL (80-100); Mean Platelet Volume 11.9 fL (9.1-12.4); Platelet Count 85 K/mm3 (150-400); RDW Coefficient Variation 13.3 % (11.7-14.2); RDW Standard Deviation 48.1 fL (35.1-46.3); Red Blood Cell Count 3.62 M/mm3 (4.30-5.90); White Blood Cell Count 14.23 K/mm3 (4.00-11.30)
[2024-01-28 10:23] LABS: EOSINOPHILS ABSOLUTE AUTO 0.04 K/mm3 (0.00-0.68); EOSINOPHILS PERCENT AUTO 0 % (0-6); IMMATURE GRAN ABSOLUTE AUTO 0.06 K/mm3 (0.00-0.10); IMMATURE GRAN PERCENT AUTO 0 % (0-1); NEUTROPHILS PERCENT AUTO 96 % (41-73)
--- NOTE | 2024-01-28 12:26 | NUR ---
DR. RUDOLHP WAS CONSULTED THIS MORNING AFTER RECEIVING A RN TO NOTIFY PSYCHIATRY CONSULT FROM DR. ALEJANDRO ON THE PATIENT. WHEN CALL WAS MADE TO DR. RUDOLPH HE ASKED WHAT THE CONSULT WAS FOR; NOTIFIED HIM FOR SI. HE ASKED IF THE PATIENT WAS ON A HOLD, TOLD HIM NO AND THAT HE REQUEST THAT HE BE PLACED ON ONE. CALLED DR. ALEJANDRO AND HE SAID IF PSCHIATRY IS REQUESTING THEN TO PLACE THE ORDER. PAPERWORK WAS COMPLETED WELL. DR. RUDOLPH CAME BY CONSULTED THE PATIENT SAID THAT THE PATIENT DOES NOT MEET CRITERIA FOR A HOLD AND THAT HIS SI IS TO DUE WITH HOMELESSNESS. HE RIPPED UP THE HOLD PAPERWORK COMPLETED BY DR. ALEJANDRO AND CONTACTED HIM AND REQUEST THAT I D/C THE HOLD ORDER IN HIS CHART.
[2024-01-28] MEDS ORDERED: Lisinopril 10 MG Tab PO SCH (15:00)
[2024-01-28] MEDS ORDERED: PredniSONE 20 MG Tab PO SCH (15:00)
[2024-01-28] MEDS ORDERED: Vancomycin HCL 1,500 MG in NS 250 ML IV SCH (15:00)
[2024-01-28 16:23] VITALS: BP 133/94
--- NOTE | 2024-01-28 17:15 | NUR ---
SHIFT SUMMARY: PT IS A&OX3-4/ PERSON ASSIST WITH CRUTCHES. HE IS ABLE TO PIVOT TRANSFER TO A CHAIR, BUT MAINLY REMAINED IN BED. HE HAS BEEN SLEEPING MOST OF THE DAY. HE DOES MAKE HIS NEEDS KNOWN AND IS PLEASANT AND COOPERATIVE WITH CARE. HE DENIES SI TODAY. HE WAS CONSULTED BY DR. RUDOLPH; SEE OTHER NURSE NOTE. PATIENT HAD A ULTRASOUND TODAY ON HIS RLE AND IT CAME BACK NEGATIVE FOR DVT. HE USES THE URINAL, IS EATING AND DRINKING. HE IS GETTING IV ANTIOBIOTICS, CURRENTLY SLEEPING, RESPIRATIONS EVEN AND UNLABORED-WHEEZY. 1:1 SITTER, NO SIGNS OR SYMPTOMS OF DISTRESS, PLAN OF CARE ONGOING.
[2024-01-28 20:29] VITALS: BP 120/73
[2024-01-29 05:19] VITALS: BP 126/84
[2024-01-29 05:42] LABS: BASOPHILS ABSOLUTE AUTO 0.02 K/mm3 (0.00-0.23); BASOPHILS PERCENT AUTO 0 % (0-2); EOSINOPHILS PERCENT AUTO 0 % (0-6); Hematocrit 32.2 % (37.0-53.0); Hemoglobin 10.9 g/dL (13.5-17.5); IMMATURE GRAN ABSOLUTE AUTO 0.06 K/mm3 (0.00-0.10); IMMATURE GRAN PERCENT AUTO 1 % (0-1); LYMPHOCYTES ABSOLUTE AUTO 0.45 K/mm3 (0.84-5.20); LYMPHOCYTES PERCENT AUTO 4 % (21-46); MONOCYTES ABSOLUTE AUTO 0.51 K/mm3 (0.16-1.47); MONOCYTES PERCENT AUTO 4 % (4-13); Mean Corpuscular HGB 32.4 pg (26.0-34.0); Mean Corpuscular HGB Conc 33.9 g/dL (31.5-36.5); Mean Corpuscular Volume 96 fL (80-100); Mean Platelet Volume 11.3 fL (9.1-12.4); NEUTROPHILS ABSOLUTE AUTO 11.56 K/mm3 (1.96-9.15); NEUTROPHILS PERCENT AUTO 92 % (41-73); Platelet Count 102 K/mm3 (150-400); RDW Coefficient Variation 13.3 % (11.7-14.2); RDW Standard Deviation 47.3 fL (35.1-46.3); Red Blood Cell Count 3.36 M/mm3 (4.30-5.90)
--- NOTE | 2024-01-29 05:51 | NUR ---
SHIFT SUMMARY PATIENT WAS QUIET AND APPEARED TO SLEEP THROUGH THE NIGHT. HE DENIED ANY PAIN. HE WOKE A FEW TIMES WHEN CHANGING HIS IV MEDICATIONS. PATIENT IS ALERT AND ORIENTED TIMES 3. TOOK HS MEDICATIONS PER EMAR. BED IN LOW POSITION, RAILS TIMES 3, AND CALL LIGHT WITHIN REACH.
[2024-01-29 06:06] LABS: Albumin, Blood 2.4 g/dL (3.4-5.0); Albumin/Globulin Ratio 0.6 (0.8-1.8); Bilirubin, Total 0.3 mg/dL (0.1-1.0); Bun/Creatinine Ratio 17.2 (12.0-20.0); Calcium, Blood 8.9 mg/dL (8.5-10.1); Creatinine, Blood 0.87 mg/dL (0.60-1.20); Globulin, Blood 4.3 g/dL (2.2-4.0); Potassium, Blood 4.3 mmol/L (3.5-5.5); Total Protein, Blood 6.7 g/dL (6.4-8.2)
[2024-01-29 07:39] VITALS: BP 150/83
[2024-01-29] MEDS ORDERED: Atorvastatin 40 MG Tab PO SCH (09:00)
[2024-01-29] MEDS ORDERED: Clopidogrel Bisulfate 75 MG Tab PO SCH (09:00)
[2024-01-29] MEDS ORDERED: Albuterol 2.5 MG/3 ML VIAL INH PRN (10:40)
[2024-01-29] MEDS ORDERED: Ipratropium/Albuterol SulF 2.5-0.5MG/3 ML Amp INH SCH (10:45)
[2024-01-29 14:52] LABS: Vancomycin, Trough 5.5 ug/mL (5.0-10.0)
[2024-01-29] MEDS ORDERED: Vancomycin HCL 1,500 MG in NS 250 ML IV SCH (15:15)
[2024-01-29 15:23] VITALS: BP 121/70
[2024-01-29] MEDS ORDERED: MethylPREDNISolone Sod Succ 125 MG Vial IV SCH (16:00)
--- NOTE | 2024-01-29 18:18 | NUR ---
SHIFT SUMMARY: PT A&OX4/MAKES NEEDS KNOWN, 1-2 PERSON ASSIST WITH CRUTCHES. HE TOOK A SHOWER TODAY; REPORTS IMPROVEMENT IN BREATHING POST BREATHING TREATMENTS AND HOT SHOWER. HE WAS TAKE OFF SI PRECAUTIONS. HE IS IN BED, CALL LIGHT WITHIN REACH, BED ALARM SET, NO SIGNS OR SYMPTOMS OF DISTRESS, PLAN OF CARE ONGOING.
[2024-01-29 19:39] VITALS: BP 131/95
[2024-01-29] MEDS ORDERED: GuaiFENesin 600 MG TabCR PO SCH (21:00)
[2024-01-30 04:46] VITALS: BP 149/73
--- NOTE | 2024-01-30 05:52 | NUR ---
SHIFT SUMMARY PATIENT IS ALERT AND ORIENTED TIMES 3. PATIENT TOOK HS MEDICATION PER EMAR. PATIENT WAS RECEPTIVE TO CARE AND SOCIAL WITH STAFF WHEN AWAKE. WHILE ALONE IN ROOM AND TRYING TO SLEEP,HE SELF TALKED ABOUT HOW STUPID THE WORLD HAS BECOME AND IT SEEMED LIKE HE RANTED ABOUT TO HIMSELF FOR ABOUT 30 MINUTES. HUNG PREDNISOLONE 125MG 60 MLS AND CEFAZOLIN 2000ML 100ML @ 200ML/HR. PATIENT APPEARED TO TOLERATE WITHOUT COMPLAINTS. BED IN LOW POSITION, RAILS ARE TIMES TWO, AND CALL LIGHT WITHIN REACH. SITTER WAS DISCONTINUED TODAY.
[2024-01-30 06:04] LABS: BASOPHILS ABSOLUTE AUTO 0.01 K/mm3 (0.00-0.23); BASOPHILS PERCENT AUTO 0 % (0-2); EOSINOPHILS PERCENT AUTO 0 % (0-6); Hematocrit 31.5 % (37.0-53.0); Hemoglobin 10.7 g/dL (13.5-17.5); IMMATURE GRAN ABSOLUTE AUTO 0.05 K/mm3 (0.00-0.10); IMMATURE GRAN PERCENT AUTO 0 % (0-1); LYMPHOCYTES ABSOLUTE AUTO 0.36 K/mm3 (0.84-5.20); LYMPHOCYTES PERCENT AUTO 3 % (21-46); MONOCYTES ABSOLUTE AUTO 0.23 K/mm3 (0.16-1.47); MONOCYTES PERCENT AUTO 2 % (4-13); Mean Corpuscular HGB 32.4 pg (26.0-34.0); Mean Corpuscular Volume 96 fL (80-100); Mean Platelet Volume 11.2 fL (9.1-12.4); NEUTROPHILS ABSOLUTE AUTO 11.13 K/mm3 (1.96-9.15); NEUTROPHILS PERCENT AUTO 94 % (41-73); Platelet Count 124 K/mm3 (150-400); RDW Coefficient Variation 13.1 % (11.7-14.2); RDW Standard Deviation 46.5 fL (35.1-46.3); White Blood Cell Count 11.78 K/mm3 (4.00-11.30)
[2024-01-30 06:24] LABS: Bun/Creatinine Ratio 18.9 (12.0-20.0); C-REACTIVE PROTEIN, EXT RANGE 12.7 mg/dL (0.000-0.300); Calcium, Blood 8.8 mg/dL (8.5-10.1); Creatinine, Blood 0.8 mg/dL (0.60-1.20); Potassium, Blood 4.1 mmol/L (3.5-5.5)
[2024-01-30 07:28] VITALS: BP 166/78
[2024-01-30 07:30] VITALS: BP 153/74
[2024-01-30 15:52] VITALS: BP 149/86
--- NOTE | 2024-01-30 16:43 | NUR ---
SHIFT SUMMARY: NO EVENTS OR CHANGES WITH THE PATIENT THROUGHOUT THE SHIFT. HE MAKES HIS NEED KNOWN, PLEASANT AND COOPERATIVE WITH CARE. CURRENTLY IN BED, CALL LIGHT WITHIN REACH, NO SIGNS OR SYMPTOMS OF DISTRESS, PLAN OF CARE ONGOING.
[2024-01-30 19:23] VITALS: BP 153/92
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
[2024-01-31 04:47] VITALS: BP 187/94
[2024-01-31 05:22] LABS: BASOPHILS ABSOLUTE AUTO 0.02 K/mm3 (0.00-0.23); BASOPHILS PERCENT AUTO 0 % (0-2); EOSINOPHILS PERCENT AUTO 0 % (0-6); Hematocrit 31.1 % (37.0-53.0); Hemoglobin 10.6 g/dL (13.5-17.5); IMMATURE GRAN ABSOLUTE AUTO 0.04 K/mm3 (0.00-0.10); IMMATURE GRAN PERCENT AUTO 1 % (0-1); LYMPHOCYTES ABSOLUTE AUTO 0.46 K/mm3 (0.84-5.20); LYMPHOCYTES PERCENT AUTO 6 % (21-46); MONOCYTES PERCENT AUTO 2 % (4-13); Mean Corpuscular HGB 32.3 pg (26.0-34.0); Mean Corpuscular HGB Conc 34.1 g/dL (31.5-36.5); Mean Corpuscular Volume 95 fL (80-100); NEUTROPHILS ABSOLUTE AUTO 7.67 K/mm3 (1.96-9.15); NEUTROPHILS PERCENT AUTO 91 % (41-73); Platelet Count 131 K/mm3 (150-400); RDW Coefficient Variation 13.1 % (11.7-14.2); RDW Standard Deviation 46.6 fL (35.1-46.3); Red Blood Cell Count 3.28 M/mm3 (4.30-5.90); White Blood Cell Count 8.39 K/mm3 (4.00-11.30)
[2024-01-31 05:44] LABS: Bun/Creatinine Ratio 23.3 (12.0-20.0); C-REACTIVE PROTEIN, EXT RANGE 5.93 mg/dL (0.000-0.300); Calcium, Blood 8.7 mg/dL (8.5-10.1); Creatinine, Blood 0.69 mg/dL (0.60-1.20); Potassium, Blood 3.8 mmol/L (3.5-5.5)
[2024-01-31 07:21] VITALS: BP 182/93
[2024-01-31 15:49] VITALS: BP 167/79
--- NOTE | 2024-01-31 17:03 | NUR ---
SHIFT SUMMARY PATIENT IS ALERT AND ORIENTED. PATIENT HAS BEEN PLEASENT AND COOPERATIVE WITH CARE THIS SHIFT. VITAL SIGNS REVIEWED. ABX INFUSED ORDERED. PATIENT HAS HAD NO COMPLAINTS OF PAIN, SOB, NAUSEA OR VOMITTING THIS SHIFT. PATIENT HAS BEEN RESTING MOST OF SHIFT, TURNED OFTEN. BED IN LOCKED AND LOWEST POSITION. CALL LIGHT IN PLACE. WILL MONITOR UNTIL SHIFT CHANGE.
[2024-01-31 20:43] VITALS: BP 152/92
--- NOTE | 2024-02-01 03:46 | NUR ---
SHIFT SUMMARY NO ACUTE CHANGES OR EVENTS DURING THIS SHIFT. PT IS COOPERATIVE WITH CARE, PLEASANT, AND ABLE TO MAKE HIS NEEDS KNOWN. PT REPORTS LEAVING IN THE MORNING, TAKING A TAXI, AND GOING TO LIVE AT HIS FRIENDS HOUSE AROUND [place]. NO COUGH NOTED DURING THIS SHIFT. LE EDEMA IMPROVING +1. PEDAL PULSE PALPABLE. IV ABX INFUSED ORDERED DURING THIS SHIFT. PT DENIES PAIN AND DISCOMFORT. BED AT THE LOWEST POSITION, CALL LIGHT WITHIN REACH.
[2024-02-01 05:15] VITALS: BP 183/78
[2024-02-01 05:27] LABS: BASOPHILS ABSOLUTE AUTO 0.02 K/mm3 (0.00-0.23); BASOPHILS PERCENT AUTO 0 % (0-2); EOSINOPHILS ABSOLUTE AUTO 0.01 K/mm3 (0.00-0.68); EOSINOPHILS PERCENT AUTO 0 % (0-6); Hematocrit 32.6 % (37.0-53.0); Hemoglobin 11.2 g/dL (13.5-17.5); IMMATURE GRAN PERCENT AUTO 1 % (0-1); LYMPHOCYTES ABSOLUTE AUTO 1.21 K/mm3 (0.84-5.20); LYMPHOCYTES PERCENT AUTO 15 % (21-46); MONOCYTES ABSOLUTE AUTO 0.67 K/mm3 (0.16-1.47); MONOCYTES PERCENT AUTO 8 % (4-13); Mean Corpuscular HGB 32.3 pg (26.0-34.0); Mean Corpuscular HGB Conc 34.4 g/dL (31.5-36.5); Mean Corpuscular Volume 94 fL (80-100); Mean Platelet Volume 10.3 fL (9.1-12.4); NEUTROPHILS ABSOLUTE AUTO 6.26 K/mm3 (1.96-9.15); NEUTROPHILS PERCENT AUTO 76 % (41-73); Platelet Count 145 K/mm3 (150-400); RDW Coefficient Variation 13.2 % (11.7-14.2); RDW Standard Deviation 45.7 fL (35.1-46.3); Red Blood Cell Count 3.47 M/mm3 (4.30-5.90); White Blood Cell Count 8.27 K/mm3 (4.00-11.30)
[2024-02-01 05:28] VITALS: BP 168/78
[2024-02-01 05:50] VITALS: BP 158/78
[2024-02-01 05:56] LABS: Bun/Creatinine Ratio 21.4 (12.0-20.0); C-REACTIVE PROTEIN, EXT RANGE 2.72 mg/dL (0.000-0.300); Creatinine, Blood 0.79 mg/dL (0.60-1.20)
[2024-02-01 07:24] VITALS: BP 162/84
[2024-02-01] MEDS ORDERED: PredniSONE 20 MG Tab PO SCH (09:00)
[2024-02-01] MEDS ORDERED: ATOR80 PO (11:23)
[2024-02-01] MEDS ORDERED: CLOP75 PO (11:24)
[2024-02-01] MEDS ORDERED: PRED20 PO (11:27)
[2024-02-01] MEDS ORDERED: ALBU90OI INH (11:30)
[2024-02-01] MEDS ORDERED: Cefadroxil500 MG PO (11:31)
[2024-02-01] MEDS ORDERED: TRELEGY ELLIPT1 EACH INH (11:35)
[2024-02-01] MEDS ORDERED: LISI20 PO (11:37)
--- NOTE | 2024-02-01 13:16 | NUR ---
DISCHARGE SUMMARY: A&Ox4. PLEASANT AND COOPERATIVE WITH CARE. CALLS APPROPRIATELY AND IS ABLE TO ADVOCATE NEEDS EFFECTIVELY. PATIENT HAS LEFT BKA AND USES CRUTCHES TO AMBULATE. PATIENT USES BATHROOM FOR ELIMINATION. NO BM DURING HOSPITAL STAY, PATIENT STATES IT IS NORMAL FOR HIM TO GO WITHOUT BM FOR 3-5 DAYS AT A TIME. NO SIGNS OF CONSTIPATION ON ASSESSMENT. MEDICATIONS FAXED TO [facility]. PATIENT HAS NO C/O PAIN PRIOR TO D/C. PATIENT PICKED UP BY T[facility] TO TAKE TO PHARMACY PRIOR TO PROVIDED DROP OFF ADDRESS. PATIENT HAS SCHEDULED FOLLOW UP APPOINTMENT AT [place], VERIFIED WITH PATIENT. IV REMOVED BY THIS NURSE. PATIENT ESCORTED FROM FLOOR BY CATHRYN LICONA WITH ALL BELONGINGS AND DISCHARGE PACKET AT 1255.
--- NOTE | 2024-02-01 13:43 | NUR ---
THIS RN PROVIDING ORIENTATION FOR SONDRA AIKEN LPN. DOCUMENTATION REVIEWED AND THIS RN AGREES WITH ASSESSMENT, PLAN AND EDUCATION PROVIDED.
== END 2024-02-01 13:01 | disposition home or self-care (01) | DRG 872 ==
LOC: ER 15:14 → ERHOLD 18:23 → MEDS 18:23
PROVIDERS: Internal Medicine; Student in an Organized Health Care Education/Training Program; ADMIT Family Medicine
DX: A41.9 Sepsis, unspecified organism (principal); L03.115 Cellulitis of right lower limb; J44.1 Chronic obstructive pulmonary disease with (acute) exacerbation; E87.1 Hypo-osmolality and hyponatremia; Z59.00 Homelessness unspecified; D64.9 Anemia, unspecified; R60.0 Localized edema; F15.14 Other stimulant abuse with stimulant-induced mood disorder; Z66 Do not resuscitate; D69.6 Thrombocytopenia, unspecified; I10 Essential (primary) hypertension; B18.2 Chronic viral hepatitis C; H91.90 Unspecified hearing loss, unspecified ear; F17.210 Nicotine dependence, cigarettes, uncomplicated; E78.5 Hyperlipidemia, unspecified; I73.9 Peripheral vascular disease, unspecified; Z89.512 Acquired absence of left leg below knee; Z91.51 Personal history of suicidal behavior; Z71.6 Tobacco abuse counseling; Z59.812 Housing instability, housed, homelessness in past 12 months
CPT/HCPCS: 0241U; 36415; 71046; 80048; 80053; 80202; 80320; 81001; 83036; 83605; 83880; 84145; 84484; 85025; 86140; 87040; 87086; 93005; 93010; 93971; 94640; 94664; 94760; 99285-25; A9270; G0480; J0690; J1650; J1885; J2919; J3370; J7030; J7050; J7512

== ENCOUNTER 2024-06-25 15:09 | Emergency (ER) | payer OTHER ==
[~2024-06-25] VITALS: Ht 167.6 cm; Wt 89.8 kg
[~2024-06-25 15:09] MED LIST changes: +ALBU90OI INH; +Cefadroxil500 MG PO; +LISI20 PO; +PRED20 PO; +TRELEGY ELLIPT1 EACH INH
[2024-06-25 15:50] LABS: BASOPHILS ABSOLUTE AUTO 0.08 K/mm3 (0.00-0.23); BASOPHILS PERCENT AUTO 1 % (0-2); EOSINOPHILS ABSOLUTE AUTO 0.22 K/mm3 (0.00-0.68); EOSINOPHILS PERCENT AUTO 3 % (0-6); Hematocrit 42.2 % (37.0-53.0); Hemoglobin 14.4 g/dL (13.5-17.5); IMMATURE GRAN ABSOLUTE AUTO 0.02 K/mm3 (0.00-0.10); IMMATURE GRAN PERCENT AUTO 0 % (0-1); LYMPHOCYTES ABSOLUTE AUTO 1.33 K/mm3 (0.84-5.20); LYMPHOCYTES PERCENT AUTO 16 % (21-46); MONOCYTES ABSOLUTE AUTO 0.44 K/mm3 (0.16-1.47); MONOCYTES PERCENT AUTO 5 % (4-13); Mean Corpuscular HGB 32.1 pg (26.0-34.0); Mean Corpuscular HGB Conc 34.1 g/dL (31.5-36.5); Mean Corpuscular Volume 94 fL (80-100); NEUTROPHILS ABSOLUTE AUTO 6.06 K/mm3 (1.96-9.15); NEUTROPHILS PERCENT AUTO 74 % (41-73); Platelet Count 165 K/mm3 (150-400); RDW Coefficient Variation 12.6 % (11.7-14.2); RDW Standard Deviation 43.4 fL (35.1-46.3); Red Blood Cell Count 4.49 M/mm3 (4.30-5.90); White Blood Cell Count 8.15 K/mm3 (4.00-11.30)
[2024-06-25 16:13] LABS: Albumin, Blood 3.8 g/dL (3.4-5.0); Albumin/Globulin Ratio 0.8 (0.8-1.8); Bilirubin, Total 0.6 mg/dL (0.1-1.0); Calcium, Blood 9.5 mg/dL (8.5-10.1); Creatinine, Blood 0.85 mg/dL (0.60-1.20); Globulin, Blood 4.9 g/dL (2.2-4.0); Potassium, Blood 4.2 mmol/L (3.5-5.5); Total Protein, Blood 8.7 g/dL (6.4-8.2)
[2024-06-25 20:29] VITALS: BP 120/65
[2024-06-25] MEDS ORDERED: NS 1,000 ML IV SCH (20:55)
[2024-06-25 21:53] LABS: Influenza A, PCR NEGATIVE (NEGATIVE); Influenza B, PCR NEGATIVE (NEGATIVE); Resp Syncytial Virus, PCR NEGATIVE (NEGATIVE); SARS-Cov-2 (COVID-19) PCR, MMC NEGATIVE (NEGATIVE)
== END 2024-06-25 22:46 | disposition home or self-care (01) ==
LOC: ER 15:09
PROVIDERS: Physician Assistant; Student in an Organized Health Care Education/Training Program
DX: E86.0 Dehydration (principal); Z79.02 Long term (current) use of antithrombotics/antiplatelets; Z79.52 Long term (current) use of systemic steroids; Z79.2 Long term (current) use of antibiotics; Z87.891 Personal history of nicotine dependence
CPT/HCPCS: 0241U; 70450; 71045; 80053; 85025; 93005; 93010; 96360; 99285-25; J7030

== ENCOUNTER 2024-09-13 09:48 | Emergency (ER) | payer OTHER ==
[~2024-09-13] VITALS: Ht 167.6 cm; Wt 88.5 kg
[2024-09-13] MEDS ORDERED: NS 1,000 ML IV SCH (10:35)
[2024-09-13 11:21] LABS: BASOPHILS ABSOLUTE AUTO 0.09 K/mm3 (0.00-0.23); BASOPHILS PERCENT AUTO 2 % (0-2); EOSINOPHILS ABSOLUTE AUTO 0.19 K/mm3 (0.00-0.68); EOSINOPHILS PERCENT AUTO 3 % (0-6); Hematocrit 40.6 % (37.0-53.0); Hemoglobin 13.8 g/dL (13.5-17.5); IMMATURE GRAN ABSOLUTE AUTO 0.08 K/mm3 (0.00-0.10); IMMATURE GRAN PERCENT AUTO 1 % (0-1); LYMPHOCYTES ABSOLUTE AUTO 1.61 K/mm3 (0.84-5.20); LYMPHOCYTES PERCENT AUTO 27 % (21-46); MONOCYTES ABSOLUTE AUTO 0.55 K/mm3 (0.16-1.47); MONOCYTES PERCENT AUTO 9 % (4-13); Mean Corpuscular HGB 31.6 pg (26.0-34.0); Mean Corpuscular Volume 93 fL (80-100); NEUTROPHILS PERCENT AUTO 58 % (41-73); RDW Coefficient Variation 13.8 % (11.7-14.2); RDW Standard Deviation 47.4 fL (35.1-46.3); Red Blood Cell Count 4.37 M/mm3 (4.30-5.90); White Blood Cell Count 6.02 K/mm3 (4.00-11.30)
[2024-09-13 11:24] LABS: Albumin, Blood 3.8 g/dL (3.4-5.0); Albumin/Globulin Ratio 0.9 (0.8-1.8); Bilirubin, Total 0.5 mg/dL (0.1-1.0); Bun/Creatinine Ratio 14.6 (12.0-20.0); Calcium, Blood 9.2 mg/dL (8.5-10.1); Creatinine, Blood 0.89 mg/dL (0.60-1.20); Globulin, Blood 4.1 g/dL (2.2-4.0); Potassium, Blood 4.4 mmol/L (3.5-5.5); Total Protein, Blood 7.9 g/dL (6.4-8.2)
[2024-09-13 11:45] LABS: Mean Platelet Volume 11.3 fL (9.1-12.4); Platelet Count 142 K/mm3 (150-400)
[2024-09-13] MEDS ORDERED: Ketorolac Tromethamine 15mg Vial IV ONE (11:50)
[2024-09-13] MEDS ORDERED: Ondansetron HCl 2 MG / ML 2ML Vial IV ONE (11:50)
[2024-09-13 13:26] VITALS: BP 152/84
== END 2024-09-13 13:25 | disposition home or self-care (01) ==
LOC: ER 09:48
PROVIDERS: Student in an Organized Health Care Education/Training Program
DX: E86.0 Dehydration (principal); Z79.899 Other long term (current) drug therapy; Z87.891 Personal history of nicotine dependence
CPT/HCPCS: 71046; 80053; 85025; 93005; 93010; 96374; 96375; 99284-25; J1885; J2405; J7030

== ENCOUNTER 2025-01-07 15:47 | Emergency (ER) | payer OTHER ==
[~2025-01-07] VITALS: Ht 177.8 cm; Wt 86.2 kg
[2025-01-07 16:09] LABS: BASOPHILS ABSOLUTE AUTO 0.06 K/mm3 (0.00-0.23); BASOPHILS PERCENT AUTO 1 % (0-2); EOSINOPHILS ABSOLUTE AUTO 0.08 K/mm3 (0.00-0.68); EOSINOPHILS PERCENT AUTO 1 % (0-6); Hematocrit 33.8 % (37.0-53.0); Hemoglobin 11.6 g/dL (13.5-17.5); IMMATURE GRAN ABSOLUTE AUTO 0.03 K/mm3 (0.00-0.10); IMMATURE GRAN PERCENT AUTO 0 % (0-1); LYMPHOCYTES ABSOLUTE AUTO 1.13 K/mm3 (0.84-5.20); LYMPHOCYTES PERCENT AUTO 10 % (21-46); MONOCYTES ABSOLUTE AUTO 0.87 K/mm3 (0.16-1.47); MONOCYTES PERCENT AUTO 8 % (4-13); Mean Corpuscular HGB Conc 34.3 g/dL (31.5-36.5); Mean Corpuscular Volume 93 fL (80-100); NEUTROPHILS ABSOLUTE AUTO 8.91 K/mm3 (1.96-9.15); NEUTROPHILS PERCENT AUTO 80 % (41-73); NRBC ABSOLUTE 0.00 K/mm3 (0.00-0.02); NRBC Auto 0.0 /100 WBC (0.0-0.2); Platelet Count 150 K/mm3 (150-400); RDW Coefficient Variation 12.9 % (11.7-14.2); RDW Standard Deviation 44.0 fL (35.1-46.3)
[2025-01-07 16:30] LABS: Alanine Aminotransfer (ALT/SGP 22.0 U/L (12-78); Albumin, Blood 3.3 g/dL (3.4-5.0); Albumin/Globulin Ratio 0.9 (0.8-1.8); Anion Gap 10.0 mmol/L (3-11); Aspartate Aminotrans (AST/SGOT 19.0 U/L (12-37); Bilirubin, Total 0.7 mg/dL (0.1-1.0); Blood Urea Nitrogen 20.0 mg/dL (8-24); CO2, Blood 24.0 mmol/L (21-32); Calcium, Blood 8.8 mg/dL (8.5-10.1); Chloride, Blood 104.0 mmol/L (98-108); Creatinine, Blood 1.71 mg/dL (0.60-1.20); Globulin, Blood 3.5 g/dL (2.2-4.0); Glucose, Blood 136.0 mg/dL (70-99); Potassium, Blood 4.6 mmol/L (3.5-5.5); Sodium, Blood 133.0 mmol/L (136-145); Total Protein, Blood 6.8 g/dL (6.4-8.2)
[2025-01-07] MEDS ORDERED: NS 1,000 ML IV SCH ×2 (17:05→17:35)
[2025-01-07 18:54] LABS: Anion Gap 8.0 mmol/L (3-11); Blood Urea Nitrogen 20.0 mg/dL (8-24); CO2, Blood 24.0 mmol/L (21-32); Calcium, Blood 8.2 mg/dL (8.5-10.1); Chloride, Blood 106.0 mmol/L (98-108); Creatinine, Blood 1.47 mg/dL (0.60-1.20); Glucose, Blood 93.0 mg/dL (70-99); Potassium, Blood 4.4 mmol/L (3.5-5.5); Sodium, Blood 134.0 mmol/L (136-145)
[2025-01-07 20:15] VITALS: BP 119/72
== END 2025-01-07 20:22 | disposition home or self-care (01) ==
LOC: ER 15:47
PROVIDERS: Emergency Medicine
DX: E86.0 Dehydration (principal); R79.89 Other specified abnormal findings of blood chemistry; Z87.891 Personal history of nicotine dependence; J44.9 Chronic obstructive pulmonary disease, unspecified; I10 Essential (primary) hypertension; Z79.02 Long term (current) use of antithrombotics/antiplatelets; Z79.51 Long term (current) use of inhaled steroids
CPT/HCPCS: 70450; 80048; 80053; 85025; 93005; 93010; 96360; 99284-25; J7030